=== PATIENT | female | born 1960 | race Caucasian/White ===

== ENCOUNTER 2020-10-21 12:03 | Emergency (ER) | payer MEDICAID ==
[~2020-10-21] VITALS: Ht 154.9 cm; Wt 69.5 kg
[~2020-10-21 12:03] MED LIST: AMAN50SY5 PO; CARB-39 PO; GABA-1216 PO; IBUP-2071 PO
[2020-10-21 12:51] VITALS: BP 144/93
[2020-10-21] MEDS ORDERED: FLUORESCEIN SODIUM 1 MG STRIP OU ONE (13:00)
[2020-10-21] MEDS ORDERED: PROPARACAINE HCL 0.5% 15 ML OPHTHALMIC SOLUTION OU ONE (13:00)
[2020-10-21] MEDS ORDERED: ERYTHROMYCIN 0.5% 3.5 GM TUBE OPHTHALMIC OINTMENT OS ONE (13:30)
== END 2020-10-21 13:51 | disposition home or self-care (01) ==
LOC: EMS 12:13
DX: S05.02XA Injury of conjunctiva and corneal abrasion without foreign body, left eye, initial encounter (principal); X58.XXXA Exposure to other specified factors, initial encounter; Y93.89 Activity, other specified; Y92.89 Other specified places as the place of occurrence of the external cause; Y99.8 Other external cause status
CPT/HCPCS: 99283